=== PATIENT | male | born 1990 | race Caucasian/White ===

== ENCOUNTER 2025-02-08 16:24 | Emergency (ER) | payer SELFPAY ==
[~2025-02-08] VITALS: Ht 185.4 cm; Wt 81.2 kg
[2025-02-08 16:36] VITALS: BP 132/65; TEMP 98.6
[2025-02-08 16:54] VITALS: O2SAT 95
== END 2025-02-08 16:54 | disposition home or self-care (01) ==
LOC: ER 16:27
DX: F10.129 Alcohol abuse with intoxication, unspecified (principal); Y90.9 Presence of alcohol in blood, level not specified